=== PATIENT | male | born 2000 | race Caucasian/White ===

== ENCOUNTER 2023-10-27 17:34 | Emergency (ER) | payer OTHER ==
[~2023-10-27] VITALS: Ht 177.8 cm; Wt 127.0 kg
[2023-10-27 17:44] VITALS: BP_SYST 133; PULSE 18; RESP 18; TEMP 98.6; O2SAT 98
[2023-10-27 20:15] VITALS: BP_SYST 133; PULSE 18; RESP 18; TEMP 98.6; O2SAT 98
== END 2023-10-27 20:15 | disposition home or self-care (01) ==
LOC: SED 17:34
DX: S83.8X1A Sprain of other specified parts of right knee, initial encounter (principal); Z79.899 Other long term (current) drug therapy; X50.1XXA Overexertion from prolonged static or awkward postures, initial encounter; Y93.89 Activity, other specified; Y92.89 Other specified places as the place of occurrence of the external cause; Y99.8 Other external cause status
CPT/HCPCS: 73564; 99283